=== PATIENT | female | born 1965 | race African-American/Black ===

== ENCOUNTER 2018-06-18 12:14 | Emergency (ER) | payer MEDICARE, MEDICAID ==
--- NOTE | 2018-06-18 12:42 | EKG REPORT ---
SEVERITY:- NORMAL ECG - SINUS RHYTHM : Confirmed by: Isi Burgos MD 18-Jun-2018 12:41:51
[2018-06-18 12:53] LABS: ABSOLUTE EOSINOPHILS # (AUTO) 0.1 10^3/uL (0.0-0.6); ABSOLUTE LYMPHOCYTES (AUTO) 1.5 10^3/uL (0.5-4.7); ABSOLUTE MONOCYTES (AUTO) 0.5 10^3/uL (0.1-1.4); ABSOLUTE NEUT (AUTO) 2.4 10^3/uL (1.7-8.2); BASOPHILS % (AUTO) 0.9 % (0-2); EOSINOPHILS % (AUTO) 2.2 % (0-6); HEMATOCRIT 33.7 % (36.0-47.0); HEMOGLOBIN 11.4 g/dL (12.0-15.5); LYMPHOCYTES % (AUTO) 33.5 % (13-45); MEAN CORPUSCULAR HEMOGLOBIN 29.9 pg (27.0-33.4); MEAN CORPUSCULAR HGB CONC 33.8 g/dL (32.0-36.0); MEAN CORPUSCULAR VOLUME 88 fl (80-97); MONOCYTES % (AUTO) 11.3 % (3-13); PLATELET COUNT 179 10^3/uL (150-450); RED BLOOD COUNT 3.82 10^6/uL (3.72-5.28); RED CELL DISTRIBUTION WIDTH 15.3 % (11.5-14.0); SEGMENTED NEUTROPHILS % (AUTO) 52.1 % (42-78); TOTAL CELLS COUNTED % (AUTO) 100 %; WHITE BLOOD COUNT 4.6 10^3/uL (4.0-10.5)
[2018-06-18 13:28] LABS: ALANINE AMINOTRANSFERASE 16 U/L (9-52); ALBUMIN 4.1 g/dL (3.5-5.0); ALKALINE PHOSPHATASE 93 U/L (38-126); ANION GAP 7 (5-19); ASPARTATE AMINO TRANSFERASE 16 U/L (14-36); BILIRUBIN,DIRECT 0.3 mg/dL (0.0-0.4); BILIRUBIN,TOTAL 0.3 mg/dL (0.2-1.3); BLOOD UREA NITROGEN 4 mg/dL (7-20); CALCIUM 9.2 mg/dL (8.4-10.2); CARBON DIOXIDE 28 mmol/L (22-30); CHLORIDE 105 mmol/L (98-107); CREATINE KINASE 166 U/L (30-135); GLUCOSE 92 mg/dL (75-110); POTASSIUM 3.8 mmol/L (3.6-5.0); SODIUM 139.9 mmol/L (137-145); TOTAL PROTEIN 7.4 g/dL (6.3-8.2)
[2018-06-18 13:38] LABS: CREATINE KINASE MB 0.93 ng/mL (<4.55); TROPONIN I < 0.012 ng/mL
[2018-06-18 14:05] LABS: APPEARANCE,URINE CLEAR; BILIRUBIN,URINE NEGATIVE (NEGATIVE); COLOR,URINE STRAW; GLUCOSE, URINE NEGATIVE (NEGATIVE); KETONES,URINE NEGATIVE (NEGATIVE); LEUKOCYTE ESTERASE,URINE NEGATIVE (NEGATIVE); NITRITE,URINE NEGATIVE (NEGATIVE); PROTEIN,URINE NEGATIVE (NEGATIVE); URINE SPECIFIC GRAVITY 1.004; UROBILINOGEN,URINE NEGATIVE mg/dL (<2.0)
[2018-06-18] MEDS ORDERED: CARBAMAZEPINE 200 MG TABLET PO ONE (14:08)
[2018-06-18 15:18] VITALS: BP 150/86
--- NOTE | 2018-06-18 15:51 | ER Document Report ---
ED Syncope and Near Syncope - General Chief Complaint: Syncope Stated Complaint: SYNCOPE Time Seen by Provider: 06/18/18 13:52 Mode of Arrival: Ambulatory Information source: Patient, Relative Notes: Patient is a 53-year-old female who was brought into the emergency room from being upstairs where she is visiting a family member. Patient was reported to have a syncopal episode and hit her head and was brought down to the emergency room. Often the witnesses have talked to patient was possibly seizing because she has a history of epilepsy. Patient states that she takes Tegretol for her epilepsy and that she has not taken it today and that this is occurred one other time before when she was excessively stressed because of a family member dying. Family member state the patient has been very overwrought about this relative and that they believe she did have a seizure rather than have a syncopal episode. Patient did hit her head but according to witnesses after a brief moment patient was talking. There was a reported possible postictal state for very short period of time. Patient has been telling nursing that she would like to leave and go back to see this relative. I have worked it out with patient to where she will remain until we can do a workup and will discharge her if everything checks out. Patient is okay with this plan. TRAVEL OUTSIDE OF THE [place] IN LAST 30 DAYS: No - HPI Patient complains to provider of: Other - Seizure Episode witnessed (by whom): Yes Single episoded occurred: Yes Multiple episodes (how many): 1 When did episodes begin: Prior to arrival Symptoms prior to episode: None Position/Activity at time of episode: Standing Quality of pain: No pain Severity: Mild Pain Level: 0 Context: Collapsed, Confused after event, Seizure activity observed. denies: Incontinent of stool, Incontinent of urine, Lost consciousness, Lost pulse Seizure activity observed: Generalized Injury location: Head Current symptoms: None/feels back to normal Similar symptoms previously: Yes Recently seen / treated by doctor: Yes - Related Data Allergies/Adverse Reactions: No Known Allergies Allergy (Verified 06/18/18 15:16) Past Medical History - Social History Smoking Status: Never Smoker Chew tobacco use (# tins/day): No Frequency of alcohol use: None Drug Abuse: None Family History: Reviewed & Not Pertinent Patient has suicidal ideation: No Patient has homicidal ideation: No - Past Medical History Cardiac Medical History: Reports: Hx Hypertension Neurological Medical History: Reports: Hx Seizures Renal/ Medical History: Denies: Hx Peritoneal Dialysis Review of Systems - Review of Systems Constitutional: No symptoms reported EENT: No symptoms reported Cardiovascular: No symptoms reported Respiratory: No symptoms reported Gastrointestinal: No symptoms reported Genitourinary: No symptoms reported Female Genitourinary: No symptoms reported Musculoskeletal: No symptoms reported Skin: No symptoms reported Hematologic/Lymphatic: No symptoms reported Neurological/Psychological: No symptoms reported -: Yes All other systems reviewed and negative Physical Exam - Vital signs Vitals: Resp BP Pulse Ox 14 195/98 H 100 06/18/18 12:24 06/18/18 12:24 06/18/18 12:24 Interpretation: Hypertensive - Notes Notes: Patient's EKG was totally normal normal sinus rhythm at approximately 66 beats a minute. - General General appearance: Appears well, Alert In distress: None - HEENT Head: Normocephalic, Atraumatic, Other - Examination of patient's head shows that she has a very small hematoma on the left upper occipital area. No sign of abrasion no sign of break in the skin no sign of discoloration just a small little bump not. Eyes: Normal Conjunctiva: Normal Nasal: Normal Mouth/Lips: Normal Mucous membranes: Normal Pharynx: Normal Neck: Normal - Respiratory Respiratory status: No respiratory distress Chest status: Nontender Breath sounds: Normal. No: Rales, Rhonchi, Stridor, Wheezing Chest palpation: Normal - Cardiovascular Rhythm: Regular Heart sounds: Normal auscultation Murmur: No - Abdominal Inspection: Normal Distension: No distension Bowel sounds: Normal Tenderness: Nontender Organomegaly: No organomegaly - Back Back: Normal, Nontender. 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 She is acting normal and she is requesting to be discharged. Her labs are basically all okay. 06/18/18 15:56 As reported to me that patient's Tegretol level was 6.8 by the ER nurse which is therapeutic but also side. We have given patient a dose of Tegretol here since she has dismissed her previous morning dosage. We have talked with the family about watching her closely and they are all in agreement that she is ready for discharge and acting her normal self. This time given the patient's neurologic exam is totally normal there was only a small hole hematoma/ appointment on top of the head I do not feel it is necessary to radiate patient with a CT scan at this time. She has no other complaints and no other pain problems. - Vital Signs Vital signs: Temp Pulse Resp BP Pulse Ox 98.4 F 9 L 150/86 H 100 06/18/18 15:58 06/18/18 15:16 06/18/18 15:16 06/18/18 15:16 - Laboratory Result Diagrams: 06/18/18 12:38 06/18/18 12:38 Laboratory results interpreted by me: 06/18/18 06/18/18 12:38 12:38 Hgb 11.4 L Hct 33.7 L RDW 15.3 H BUN 4 L Creatine Kinase 166 H Discharge - Discharge Clinical Impression: Seizure Condition: Stable Disposition: HOME, SELF-CARE Instructions: Seizure, Known Epileptic ([facility]) Additional Instructions: Him and rest. Please take medication as prescribed. Highly suggest that you do not drive until after you follow-up with your primary care provider. As we have talked it appears that stress may have set this episode off and since it has occurred one time before because of that stress you need to avoid as much as possible. Definitely do not need to be driving a car or work at [employer]. She given concerns or problems return to ER for recheck. Forms: Elevated Blood Pressure, Smoking Cessation Education, Return to Work Referrals: KAYLA FOLEY MD [Primary Care Provider] - Follow up as needed
== END 2018-06-18 16:08 | disposition home or self-care (01) ==
LOC: ER 12:14
DX: G40.909 Epilepsy, unspecified, not intractable, without status epilepticus (principal); I10 Essential (primary) hypertension; S00.93XA Contusion of unspecified part of head, initial encounter; W19.XXXA Unspecified fall, initial encounter
CPT/HCPCS: 93005; 99284; 36415; 82553; 82550; 80156; 85025; 80053; 81001; 84484; 93010; A9270